=== PATIENT | male | born 1990 | race Caucasian/White ===

== ENCOUNTER 2019-11-03 18:31 | Emergency (ER) | payer SELFPAY ==
[2019-11-03] MEDS ORDERED: levETIRAcetam 500 mg/5 ml Oral Solution PO SCH (20:30)
[2019-11-03] MEDS ORDERED: levETIRAcetam 1000 MG/100 ML PREMIX BAG ONE (20:47)
== END 2019-11-03 21:01 | disposition home or self-care (01) ==
LOC: ERS 18:31
DX: R51 Headache (principal); Z76.0 Encounter for issue of repeat prescription; C18.9 Malignant neoplasm of colon, unspecified; R56.9 Unspecified convulsions; F17.210 Nicotine dependence, cigarettes, uncomplicated; Z79.899 Other long term (current) drug therapy
CPT/HCPCS: 99283; J1953